=== PATIENT | female | born 1980 | race American Indian/Alaskan Native ===

== ENCOUNTER 2021-11-14 12:16 | Outpatient (CLI) | payer OTHER ==
--- NOTE | 2021-11-15 10:34 | Mammography Report ---
DIGITAL SCREENING MAMMOGRAM WITH CAD, 11/14/2021 CLINICAL INFORMATION / INDICATION: Routine screening mammography. TECHNIQUE: Digital bilateral 2D mammography was obtained in the craniocaudal and mediolateral obliqu e projections. This examination was interpreted with the benefit of Computer-Aided Detection analysis . COMPARISON: None. This is the patient's first mammogram. FINDINGS: Breast Density: The breasts are heterogeneously dense, which may obscure small masses. No dominant mass, suspicious calcifications, or architectural distortion in either breast. IMPRESSION: No mammographic evidence of malignancy. Follow up recommendation: Routine yearly BI-RADS Category 1: NEGATIVE A "normal" or negative report should not discourage follow up or biopsy of a clinically significant f inding. A written summary of these findings will be mailed to the patient. The patient will be entered into a mammography reporting system which will generate a reminder letter for the patient's next appointmen t at the appropriate interval. The [employer] recommends yearly mammograms starting at age 40 and continuing as l shlomo as a woman is in good health. Breast MRI is recommended for women with an approximate 20-25% or greater lifetime risk of breast cancer, including women with a strong family history of breast or ova reg cancer or who have been treated for Hodgkin's disease. Signer Name: Sarah Davenport MD Signed: 11/15/2021 10:29 AM Workstation Name: [id number]
== END 2021-11-14 12:17 | disposition home or self-care (01) ==
LOC: MAMMO 12:16
PROVIDERS: ATTEND Internal Medicine
DX: Z12.31 Encounter for screening mammogram for malignant neoplasm of breast (principal)
CPT/HCPCS: 77067

== ENCOUNTER 2022-02-22 06:19 | Emergency (ER) | payer OTHER ==
--- NOTE | 2022-02-22 09:01 | Electrocardiograph Report ---
[facility] Test Date: 2022-02-22 Test Time: 06:21:57 Pat Name: PARUL PALMA Department: Room: Gender: F Periodontist: [id number] : 1980 Requested By: MAY JUNIOR Order Number: [id number] Reading MD: Darryl Oseguera Measurements Intervals [place] Rate: 78 P: 63 ND: 176 QRS: 69 QRSD: 74 T: 52 QT: 377 QTc: 428 Interpretive Statements Sinus rhythm No previous ECG available for comparison Electronically Signed On 02-22-2022 9:01:28 EDT by Darryl Oseguera
[2022-02-22 10:20] LABS: Basophils % (Auto) 0.2 % (0.0-1.8); Eosinophils # (Auto) 0.1 K/mm3 (0.0-0.4); Eosinophils % (Auto) 1.2 % (0.0-4.3); Hematocrit 36.6 % (30.3-42.9); Hemoglobin 11.4 gm/dl (10.1-14.3); Lymphocytes # (Auto) 2.2 K/mm3 (1.2-5.4); Lymphocytes % (Auto) 25.4 % (13.4-35.0); Mean Corpuscular HGB Conc 31 % (30-34); Mean Corpuscular Volume 75 fl (79-97); Monocytes # (Auto) 0.5 K/mm3 (0.0-0.8); Monocytes % (Auto) 5.8 % (0.0-7.3); Platelet Count 292 K/mm3 (140-440); Red Blood Count 4.87 M/mm3 (3.65-5.03); Red Cell Distribution Width 16.9 % (13.2-15.2)
[2022-02-22 10:31] LABS: Alanine Aminotransferase 11 units/L (7-56); Albumin 3.7 g/dL (3.9-5); Blood Urea Nitrogen 8 mg/dL (7-17); Calcium 9.4 mg/dL (8.4-10.2); Hemolysis Index 5
[2022-02-22 10:37] LABS: BUN/Creatinine Ratio 13
[2022-02-22] MEDS ORDERED: KETOROLAC 10 MG TAB PO ONE (11:24)
[2022-02-22] MEDS ORDERED: CYCLOBENZAPRINE 10 MG TAB PO ONE (11:24)
--- NOTE | 2022-02-22 11:53 | Emergency Department Report ---
ED Chest Pain HPI - General Chief Complaint: Chest Pain Stated Complaint: CHEST PAIN Time Seen by Provider: 02/22/22 11:09 Source: patient, family Mode of arrival: Wheelchair Limitations: No Limitations - History of Present Illness Initial Comments: 41-year-old black female with no past medical history and a positive family history of CAD presents to the emergency department for evaluation of right- sided chest pain that started around 3:00 this morning. She states that she recently came back [place] which [place] then developed this pain. She states that her chest pain is associated with some shortness of breath and is worse with deep inspiration and any type of movement. She denies nausea, vomiting, dizziness, diaphoresis, and fever. She states that pain is 6 out of 10. MD Complaint: chest pain -: Sudden, hour(s) Onset: during rest Pain Location: right chest Pain Radiation: none Severity: severe Severity scale (0 -10): 10 Quality: tightness, sharp Consistency: constant Worsens With: inspiration, palpation, movement re: dyspnea. denies: nausea, vomting, diaphoresis, sense of impending doom Other Symptoms: denies: cough, fever, syncope, rash, acid taste in mouth, leg swelling, palpitations, burping Treatments Prior to Arrival: none Aspirin use within the Past 7 Days: (0) No - Related Data On Oral Contraceptives: No Previous Rx's Medication Instructions Recorded Last Taken Type Naproxen [Naprosyn] 500 mg PO BID #14 tab 02/22/22 Unknown Rx Allergies Allergy/AdvReac Type Severity Reaction Status Date / Time No Known Allergies Allergy Verified 02/22/22 06:55 Heart Score - HEART Score History: Slightly suspicious EKG: Normal Age: < 45 Risk factors: 1-2 risk factors Troponin: < normal limit HEART Score: 1 - EKG Read Time Time EKG Completed: 06:21 EKG Read Time: 06:45 - Critical Actions Critical Actions: 0-3 pts:0.9-1.7%risk of adverse cardiac event.Candidate for discharge ED Review of Systems ROS: Stated complaint: CHEST PAIN Other details as noted in HPI Comment: All other systems reviewed and negative Constitutional: denies: chills, fever Eyes: denies: eye discharge, vision change ENT: denies: congestion Respiratory: shortness of breath. denies: cough, orthopnea, SOB with exertion, SOB at rest, stridor, wheezing Cardiovascular: chest pain. denies: palpitations, dyspnea on exertion, orthopnea, edema, syncope, paroxysmal nocturnal dyspnea Gastrointestinal: abdominal pain. denies: nausea, vomiting Genitourinary: denies: urgency, dysuria, frequency, hematuria, discharge, abnormal menses, dyspareunia Musculoskeletal: denies: back pain Skin: denies: rash, lesions Neurological: denies: headache, weakness Psychiatric: denies: anxiety, depression ED Past Medical Hx - Medications Home Medications: Home Medications Medication Instructions Recorded Confirmed Last Taken Type Naproxen [Naprosyn] 500 mg PO BID #14 tab 02/22/22 Unknown Rx ED Physical Exam - General Limitations: No Limitations General appearance: alert, in no apparent distress - Head Head exam: Present: atraumatic, normocephalic - Eye Eye exam: Present: normal appearance. Absent: scleral icterus, conjunctival injection, periorbital swelling, periorbital tenderness - ENT ENT exam: Present: normal exam - Neck Neck exam: Present: normal inspection, full ROM. Absent: tenderness, lymphadenopathy, thyromegaly - Respiratory Respiratory exam: Present: normal lung sounds bilaterally, chest wall tenderness. Absent: respiratory distress, wheezes, rales, rhonchi - Cardiovascular Cardiovascular Exam: Present: regular rate, normal heart sounds - GI/Abdominal GI/Abdominal exam: Present: soft, normal bowel sounds. Absent: distended, tenderness, guarding, rebound, rigid - Extremities Exam Extremities exam: Present: normal inspection, full ROM, normal capillary refill. Absent: tenderness, pedal edema, joint swelling, calf tenderness - Back Exam Back exam: Present: normal inspection. Absent: CVA tenderness (R), CVA tenderness (L), vertebral tenderness - Neurological Exam Neurological exam: Present: alert, oriented X3, CN II-XII intact, normal gait, reflexes normal. Absent: motor sensory deficit - Psychiatric Psychiatric exam: Present: normal affect, normal mood - Skin Skin exam: Present: warm, dry, intact, normal color ED Course Vital Signs 02/22/22 06:26 Temperature 98.0 F Pulse Rate 86 Respiratory 18 Rate Blood Pressure 129/87 O2 Sat by Pulse 99 Oximetry ANTONI score - Antoni Score Age > 65: (0) No Aspirin use within the Past 7 Days: (0) No 3 or more CAD Risk Factors: (0) No 2 or more Angina events in past 24 hrs: (0) No Known CAD with more than 50% Stenosis: (0) No Elevated Cardiac Markers: (0) No ST Deviation Greater than 0.5mm: (0) No ANTONI Score: 0 ED Medical Decision Making - Lab Data Result diagrams: 02/22/22 09:50 02/22/22 09:50 - Radiology Data Radiology results: report reviewed, image reviewed Chest x-ray: Computer downtime preliminary report: No acute findings. Trace right pleural effusion. - Medical Decision Making 41-year-old black female with no past medical history and a positive family hi story of CAD presents to the emergency department for evaluation of right-sided chest pain that started around 3:00 this morning. She states that she recently came back from [place] which [place] then developed this pain. She states that her chest pain is associated with some shortness of breath and is worse with deep inspiration and any type of movement. She denies nausea, vom iting, dizziness, diaphoresis, and fever. She states that pain is 6 out of 10. Patient noted to have chest wall tenderness on physical examination. EKG without any acute ischemic changes noted, troponin within normal limit, and chest x-ray positive for small trace right pleural effusion. Patient will be given Toradol in the emergency department then discharged home on 7-day course of naproxen to improve pleural effusion and advised to follow-up with her primary care provider and pulmonology for further evaluation and management. She is advised to return to the emergency department as needed. All questions answered. She verbalizes understanding of and agreement with plan of care. Critical care attestation.: If time is entered above; I have spent that time in minutes in the direct care of this critically ill patient, excluding procedure time. ED Disposition Clinical Impression: Pleural effusion Chest pain Qualifiers: Chest pain type: unspecified Qualified Code(s): R07.9 - Chest pain, unspecified Disposition: 01 HOME / SELF CARE / HOMELESS Is pt being admited?: No Does the pt Need Aspirin: No Condition: Stable Instructions: Nonspecific Chest Pain, Adult, Chest Wall Pain, [id number], Pleural Effusion Additional Instructions: Take medications as prescribed. 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 Return to the emergency department as needed. Prescriptions: Naproxen [Naprosyn] 500 mg PO BID #14 tab Referrals: ELVER REZA MD [Primary Care Provider] - 3-5 Days Forms: Work/School Release Form(ED) Time of Disposition: 11:58
[2022-02-22 12:09] VITALS: BP 134/86
--- NOTE | 2022-02-22 17:39 | XRay Report ---
CHEST 2 VIEWS INDICATION / CLINICAL INFORMATION: Chest Pain. COMPARISON: None available. FINDINGS: SUPPORT DEVICES: None. HEART / MEDIASTINUM: No significant abnormality. LUNGS / PLEURA: No significant pulmonary or pleural abnormality. No pneumothorax. ADDITIONAL FINDINGS: Granulomas right lower lung IMPRESSION: 1. No acute findings. Signer Name: Jonathan Strauss MD Signed: 02/22/2022 5:31 PM Workstation Name: [id number]
== END 2022-02-22 12:06 | disposition home or self-care (01) ==
LOC: ED 06:19
DX: R07.9 Chest pain, unspecified (principal); J90 Pleural effusion, not elsewhere classified
CPT/HCPCS: 36415; 71046; 80053; 83690; 84484; 84703; 85025; 93005; 99284